=== PATIENT | male | born 2000 ===

== ENCOUNTER 2020-07-05 19:04 | Emergency (ER) | payer OTHER, BC ==
[2020-07-05 19:36] LABS: RED BLOOD COUNT 5.51 M/UL (4.20-5.50); WHITE BLOOD COUNT 15.9 K/UL (4.5-11.0)
[2020-07-05 19:58] LABS: BUN/CREATININE RATIO 13 (0-10)
[2020-07-06 05:59] LABS: WHITE BLOOD COUNT 13.1 K/UL (4.5-11.0)
[2020-07-06 06:10] LABS: RED BLOOD COUNT 4.87 M/UL (4.20-5.50)
[2020-07-06 06:18] LABS: BUN/CREATININE RATIO 14 (0-10)
[2020-07-06] MEDS ORDERED: PERCOCET 5/325 T1 EA PO (07:00)
== END 2020-07-06 17:37 | disposition home or self-care (01) ==
LOC: ER1 19:04
PROVIDERS: Family Medicine
DX: S22.32XA Fracture of one rib, left side, initial encounter for closed fracture (principal); V49.40XA Driver injured in collision with unspecified motor vehicles in traffic accident, initial encounter
CPT/HCPCS: 36600; 70450; 71260; 72125; 80053; 80307; 81001; 82803; 83605; 85025; 85610; 85730; 86850; 86900; 86901; 93005; 96374; 96375; 99284; G0480; J1885; J2405; Q9967